=== PATIENT | female | born 1955 | race Caucasian/White ===

== ENCOUNTER 2016-04-02 11:18 | Emergency (ER) | payer BC ==
[2016-04-02 11:25] VITALS: O2SAT 94
--- NOTE | 2016-04-02 11:35 | EDPHY ---
HPI/HX/ROS/PE/MDM Narrative: CHIEF COMPLAINT: "I slipped on the ice and hit my knees and forehead" HPI: The patient is a 60 y/o female arriving with her family member complaining of "feeling off," nausea, and knee pain secondary to a slip and fall on ice last night around 22:00. She denies loss of consciousness, neck pain, back pain , weakness, or paresthesias. Throughout the morning she has felt nauseated and "tyree fuzzy." She denies vomiting or vision changes and has been ambulatory since the fall. She has baseline bilateral knee pain. She does not use anticoagulants. REVIEW OF SYSTEMS: Aside from elements discussed in the HPI, a comprehensive 10-point review of systems was reviewed and is negative. PMH: Left meniscal repair, migraines, knee pain, varicose veins SOCIAL HISTORY: Recently moved from [place] PHYSICAL EXAM: General:Patient is alert, in no acute distress. ENT:Eyes are normal to inspection. NORTH. EOMI. ENT inspection normal. Neck: Normal inspection. Full range of motion. Respiratory:No respiratory distress. Breath sounds normal bilaterally. Cardiovascular: Regular rate and rhythm. Strong peripheral pulses. Normal cap refill. Abdomen:The abdomen is nontender to palpation. There are no peritoneal signs. There are normal bowel sounds. Back: Normal to inspection. No tenderness to palpation. Skin: Normal color. No rash. Warm and dry. Ecchymosis just distal to left knee. Extremities: Normal appearance. Full range of motion. Neuro: Oriented x3. Normal motor function. Normal sensory function. No pronator drift. MDM: This patient presents approximately 12 hours after minor head injury. There are no red flags to suggest intracranial bleed or skull fracture. I offered the patient a CT head and neck to further confirm this, but she declines. She does have ecchymosis on her knees, but no bony tenderness or crepitus, and is able to walk without seed standard difficulty. She is comfortable with plan of no further evaluation here in the emergency department. We discussed strict return precautions. General Time Seen by Provider: 04/02/16 11:26 Initial Vital Signs: Initial Vital Signs Temperature (C) 36.6 C 04/02/16 11:21 Heart Rate 81 04/02/16 11:21 Respiratory Rate 16 04/02/16 11:21 Blood Pressure 151/99 H 04/02/16 11:21 O2 Sat (%) 94 04/02/16 11:21 O2 Delivery Mode Room Air Allergies/Adverse Reactions: No Known Allergies Allergy (Unverified 04/02/16 11:19) Home Medications: Medication Instructions Recorded IMITREX 04/02/16 Departure - Departure Disposition: Home, Routine, Self-Care Clinical Impression: Contusion of knee, left, Concussion Instructions: Concussion (ED), Contusion in Adults (ED) Additional Instructions: 1. Take 600mg ibuprofen every 6-8 hours for the next 2-3 days. 2. Increase your water intake while at altitude. 3. Brain rest. Limit screen time including phones, TVs, computers while symptoms are present. Avoid any activities that could lead to recurrent concussion while symptoms are present. 4. You've been referred to Dr. Barrera, primary care provider, and Dr. Waggoner , orthopedist, at your request to establish care. 5. Return to ED for severe headache, uncontrollable vomiting, confusion, or other worsening of condition. Referrals: Alec Barrera MD [Medical Doctor] - As per Instructions Ej Waggoner MD [Medical Doctor] - As per Instructions Report Scribed for: Antonio Lombardo Report Scribed by: Brielle Gutierrez Date of Report: 04/02/16 Time of Report: 11:36 Physician Review and Approval Statement: Portions of this note were transcribed by an ED scribe. I personally performed the history, physical exam, and medical decision making; and confirm the accuracy of the information in the transcribed note.
[2016-04-02 12:06] VITALS: BP 128/84; PULSE 78; RESP 14; TEMP 98.4
== END 2016-04-02 12:05 | disposition home or self-care (01) ==
DX: S06.0X0A Concussion without loss of consciousness, initial encounter (principal); S80.02XA Contusion of left knee, initial encounter; W00.0XXA Fall on same level due to ice and snow, initial encounter